=== PATIENT | male | born 1990 | race Caucasian/White ===

== ENCOUNTER 2017-02-06 05:25 | Emergency (ER) | payer OTHER ==
[~2017-02-06] VITALS: Ht 172.7 cm; Wt 72.8 kg
[2017-02-06 05:26] VITALS: BP 136/75
== END 2017-02-06 06:02 | disposition other institution (70) ==
LOC: ED 05:51
DX: J03.00 Acute streptococcal tonsillitis, unspecified (principal)
CPT/HCPCS: 99285